=== PATIENT | male | born 1995 | race Caucasian/White ===

== ENCOUNTER 2017-05-18 12:08 | Inpatient (IN) | payer MEDICAID ==
[~2017-05-18] VITALS: Ht 162.6 cm; Wt 132.0 kg
[~2017-05-18 12:08] MED LIST: QUET200T PO
[2017-05-18 12:36] VITALS: BP 150/93
[2017-05-18] MEDS ORDERED: HALOPERIDOL 5 MG TABLET PO PRN (13:15)
[2017-05-18] MEDS ORDERED: ZOLPIDEM TARTRATE 10 MG TABLET PO PRN (13:15)
[2017-05-18] MEDS ORDERED: LORazepam 2 MG/ML VIAL ONE (13:41)
[2017-05-18] MEDS ORDERED: DiphenhydrAMINE HCL 50 MG/ML VIAL ONE (13:41)
[2017-05-18] MEDS ORDERED: HALOPERIDOL LACTATE 5 MG/ML VIAL ONE (13:41)
[2017-05-18] MEDS ORDERED: HALOPERIDOL LACTATE 5 MG/ML VIAL IM ONE (13:45)
[2017-05-18] MEDS ORDERED: LORazepam 2 MG/ML VIAL IM ONE (13:45)
[2017-05-18] MEDS ORDERED: DiphenhydrAMINE HCL 50 MG/ML VIAL IM ONE (13:45)
[2017-05-18 14:21] VITALS: BP 130/81
[2017-05-18] MEDS ORDERED: INFLUENZA VIRUS VACCINE QVS 2017-18 (3YR+)/PF 60 MCG/0.5 ML SYRINGE IM ONE (14:30)
[2017-05-18 16:09] VITALS: BP 126/73
[2017-05-18 16:10] VITALS: BP 126/73
[2017-05-18] MEDS: QUEtiapine FUMARATE 200 MG TABLET PO SCH (20:42)
[2017-05-19 00:05] VITALS: BP 112/60
[2017-05-19 08:11] LABS: BASOPHILS % (AUTO) 0.9 % (0.0-2.0); EOSINOPHILS % (AUTO) 1.9 % (1.0-6.0); HEMOGLOBIN 15.5 g/dL (13.5-17.5); LYMPHOCYTES % (AUTO) 31.4 % (22.0-44.0); MEAN CORPUSCULAR HGB CONC 34.5 G/dL (31.0-37.0); MEAN CORPUSCULAR VOLUME 90 fL (80-100); MONOCYTES # (AUTO) 0.5 K/uL (0.1-1.0); MONOCYTES % (AUTO) 8.3 % (2.0-9.0); NEUTROPHILS # (AUTO) 3.6 K/uL (1.8-7.7); NEUTROPHILS % (AUTO) 57.5 % (40.0-70.0); PLATELET COUNT (AUTO) 265 K/uL (150-450); RED BLOOD CELL COUNT(AUTO) 5.01 MIL/uL (4.50-5.90); RED CELL DISTRIBUTION WIDTH 14.4 % (11.5-14.5)
[2017-05-19 08:17] LABS: HEMOGLOBIN A1C 5.3 % (4.5-6.2)
[2017-05-19 08:31] LABS: ALANINE AMINOTRANSFERASE 36 U/L (12-78); ALBUMIN 4.2 g/dL (3.4-5.0); ALKALINE PHOSPHATASE 93 U/L (46-116); ANION GAP 9 mmol/L (8-16); ASPARTATE AMINOTRANSFERASE 22 U/L (15-37); BILIRUBIN,TOTAL 0.8 mg/dL (0.1-1.0); CALCIUM, TOTAL 9.4 mg/dL (8.8-10.5); CARBON DIOXIDE 30 mmol/L (22-29); CHLORIDE 102 mmol/L (98-107); CHOL/HDL RATIO 2.8 (4.2-7.3); CHOLESTEROL 165 mg/dL (131-200); CREATININE 0.82 mg/dL (0.60-1.30); GLOMERULAR FILTR. RATE CALC > 60 mL/min (>60); GLUCOSE,RANDOM 75 mg/dL (70-110); HDL CHOLESTEROL 60 mg/dL (40-60); LDL CHOL (CALC.) 90 mg/dL (0-130); POTASSIUM 3.8 mmol/L (3.5-5.1); SODIUM SERUM 141 mmol/L (136-145); THYROID STIMULATING HORMONE 0.43 uIU/mL (0.36-3.74); TOTAL PROTEIN, SERUM 8.2 g/dL (6.4-8.2); TRIGLYCERIDES 74 mg/dL (15-150); UREA NITROGEN, BLOOD 17 mg/dL (7-18)
[2017-05-19] MEDS ORDERED: IBUPROFEN 600 MG TABLET PO PRN (09:30)
[2017-05-19] MEDS ORDERED: BENZOCAINE/MENTHOL LOZENGE MM PRN (09:30)
[2017-05-19] MEDS ORDERED: ONDANSETRON HCL 4 MG TABLET PO PRN (09:30)
[2017-05-19] MEDS ORDERED: PETROLATUM,WHITE 71 GM JELLY TP PRN (09:30)
[2017-05-19] MEDS ORDERED: MAG HYDROX/AL HYDROX/SIMETH ES 30 ML SUSPENSION UDCUP PO PRN (09:30)
[2017-05-19] MEDS ORDERED: ALBUTEROL SULFATE HFA 90 MCG/PUFF 8 GM INHALER IH PRN (09:30)
[2017-05-19] MEDS ORDERED: CloNIDine HCL 0.1 MG TABLET PO PRN (09:30)
[2017-05-19] MEDS ORDERED: MAGNESIUM HYDROXIDE SUSPENSION 30 ML UDCUP PO PRN (09:30)
[2017-05-19] MEDS ORDERED: LOPERAMIDE HCL 2 MG CAPSULE PO PRN (09:30)
[2017-05-19] MEDS ORDERED: BACITRACIN 28.4 GM OINTMENT TP PRN (09:30)
[2017-05-19] MEDS ORDERED: ACETAMINOPHEN 325 MG TABLET PO PRN (09:30)
[2017-05-19 16:00] VITALS: BP 120/68
[2017-05-19] MEDS: QUEtiapine FUMARATE 200 MG TABLET PO SCH (20:20)
[2017-05-20 07:00] VITALS: BP 115/60
[2017-05-20 08:01] VITALS: BP 120/68
[2017-05-20] MEDS: LORazepam 2 MG TABLET PO PRN ×2 (12:40→16:48)
[2017-05-20 16:01] VITALS: BP 139/98
[2017-05-20 19:30] VITALS: BP 122/87
[2017-05-20] MEDS: QUEtiapine FUMARATE 200 MG TABLET PO SCH (20:35)
[2017-05-21 05:06] VITALS: BP 115/73
[2017-05-21 08:32] VITALS: BP 117/66
== END 2017-05-21 17:56 | disposition home or self-care (01) | DRG 750 ==
LOC: B2S 13:13
PROC: 3E0234Z Introduction of Serum, Toxoid and Vaccine into Muscle, Percutaneous Approach (ICD-10-PCS; principal; 2017-05-18)
DX: F25.1 Schizoaffective disorder, depressive type (principal); F23 Brief psychotic disorder; F15.10 Other stimulant abuse, uncomplicated; G47.00 Insomnia, unspecified; F12.90 Cannabis use, unspecified, uncomplicated; F10.10 Alcohol abuse, uncomplicated; Z79.899 Other long term (current) drug therapy; Z23 Encounter for immunization
CPT/HCPCS: 83036; 84439; 84443; 90471; J1200; J1630; J2060

== ENCOUNTER 2017-08-31 09:43 | Emergency (ER) | payer MEDICAID, OTHER ==
[~2017-08-31] VITALS: Ht 157.5 cm; Wt 75.0 kg
[2017-08-31] MEDS ORDERED: SODIUM CHLORIDE 0.9% 1,000 ML IV ONE (10:00)
[2017-08-31 10:06] LABS: BASOPHILS % (AUTO) 0.5 % (0.0-2.0); EOSINOPHILS % (AUTO) 0.4 % (1.0-6.0); HEMOGLOBIN 14.9 g/dL (13.5-17.5); LYMPHOCYTES # (AUTO) 1.2 K/uL (1.0-4.8); LYMPHOCYTES % (AUTO) 13.8 % (22.0-44.0); MEAN CORPUSCULAR HGB CONC 35.5 G/dL (31.0-37.0); MEAN CORPUSCULAR VOLUME 90 fL (80-100); MONOCYTES # (AUTO) 0.2 K/uL (0.1-1.0); MONOCYTES % (AUTO) 2.9 % (2.0-9.0); NEUTROPHILS # (AUTO) 6.9 K/uL (1.8-7.7); NEUTROPHILS % (AUTO) 82.4 % (40.0-70.0); PLATELET COUNT (AUTO) 260 K/uL (150-450); RED BLOOD CELL COUNT(AUTO) 4.67 MIL/uL (4.50-5.90); RED CELL DISTRIBUTION WIDTH 13.2 % (11.5-14.5)
[2017-08-31 10:12] LABS: ANION GAP 10 mmol/L (8-16); CALCIUM, TOTAL 8.2 mg/dL (8.8-10.5); CARBON DIOXIDE 30 mmol/L (22-29); CHLORIDE 103 mmol/L (98-107); CREATININE 0.95 mg/dL (0.60-1.30); GLOMERULAR FILTR. RATE CALC > 60 mL/min (>60); GLUCOSE,RANDOM 104 mg/dL (70-110); SODIUM SERUM 143 mmol/L (136-145); UREA NITROGEN, BLOOD 11 mg/dL (7-18)
[2017-08-31 10:15] LABS: PROTHROMBIN TIME 10.7 SEC (9.4-11.6)
[2017-08-31 10:17] LABS: ALANINE AMINOTRANSFERASE 78 U/L (12-78); ALKALINE PHOSPHATASE 92 U/L (46-116); ASPARTATE AMINOTRANSFERASE 49 U/L (15-37); BILIRUBIN,TOTAL 0.2 mg/dL (0.1-1.0); TOTAL PROTEIN, SERUM 7.9 g/dL (6.4-8.2)
[2017-08-31 10:23] LABS: GLUCOSE,POINT OF CARE 91 MG/DL (70-110)
[2017-08-31 10:38] LABS: AMPHET/METH SCREEN,URINE NEGATIVE (NEGATIVE); BARBITURATE SCREEN, URINE NEGATIVE (NEGATIVE); BENZODIAZEPINES SCREEN,URINE NEGATIVE (NEGATIVE); CANNABINOID SCREEN,URINE POSITIVE (NEGATIVE); COCAINE SCREEN,URINE NEGATIVE (NEGATIVE); METHADONE SCREEN, URINE NEGATIVE (NEGATIVE); OPIATE SCREEN,URINE NEGATIVE (NEGATIVE)
[2017-08-31 10:39] LABS: PHENCYCLIDINE SCREEN,URINE NEGATIVE (NEGATIVE)
[2017-08-31 11:21] LABS: APPEARANCE,URINE CLOUDY (CLEAR); BILIRUBIN,URINE NEGATIVE (NEGATIVE); GLUCOSE, URINE (UA) NEGATIVE (NEGATIVE); KETONES,URINE NEGATIVE (NEGATIVE); NITRATE,URINE NEGATIVE (NEGATIVE); OCCULT BLOOD,URINE NEGATIVE (NEGATIVE); PH,URINE 8.5 (5.0-8.0); PROTEIN,URINE NEGATIVE (NEGATIVE); UROBILINOGEN,URINE 0.2 mg/dL (<=1.0)
[2017-08-31 11:22] LABS: LEUKOCYTE ESTERASE ,URINE NEGATIVE (NEGATIVE)
[2017-08-31 11:26] VITALS: BP 127/52
== END 2017-08-31 12:06 | disposition home or self-care (01) ==
LOC: EMS 09:47
DX: S00.93XA Contusion of unspecified part of head, initial encounter (principal); F10.129 Alcohol abuse with intoxication, unspecified; F31.9 Bipolar disorder, unspecified; F20.9 Schizophrenia, unspecified; F15.90 Other stimulant use, unspecified, uncomplicated; Y90.6 Blood alcohol level of 120-199 mg/100 ml; Y09 Assault by unspecified means; Y93.89 Activity, other specified; Y92.89 Other specified places as the place of occurrence of the external cause; Y99.8 Other external cause status
CPT/HCPCS: 36415; 51702; 70450; 72125; 80053; 80307; 81003; 82948; 82962; 85025; 85610; 85730; 93005; 96360; 99285; G0480; J7030

== ENCOUNTER 2017-09-30 03:54 | Emergency (ER) | payer OTHER ==
[~2017-09-30 03:54] MED LIST changes: -QUEtiapine FUMARATE 100 MG TABLET PO ONE
== END 2017-09-30 04:30 | disposition left against medical advice (07) ==
LOC: EMS 03:57
DX: Z00.8 Encounter for other general examination (principal); Z53.21 Procedure and treatment not carried out due to patient leaving prior to being seen by health care provider

== ENCOUNTER → 2017-09-30 | Emergency (ER) | payer OTHER ==
[~2017-09-30] VITALS: Ht 160 cm; Wt 68.2 kg
[~2017-09-30] MED LIST changes: +QUEtiapine FUMARATE 100 MG TABLET PO ONE
[2017-09-30 19:11] VITALS: BP 117/68
[2017-09-30 20:22] LABS: BASOPHILS % (AUTO) 0.8 % (0.0-2.0); EOSINOPHILS % (AUTO) 1.8 % (1.0-6.0); HEMATOCRIT 40.6 % (41-53); HEMOGLOBIN 14.3 g/dL (13.5-17.5); LYMPHOCYTES # (AUTO) 2.2 K/uL (1.0-4.8); LYMPHOCYTES % (AUTO) 27.1 % (22.0-44.0); MEAN CORPUSCULAR HGB CONC 35.2 G/dL (31.0-37.0); MEAN CORPUSCULAR VOLUME 91 fL (80-100); MONOCYTES # (AUTO) 0.9 K/uL (0.1-1.0); MONOCYTES % (AUTO) 10.9 % (2.0-9.0); NEUTROPHILS # (AUTO) 4.7 K/uL (1.8-7.7); NEUTROPHILS % (AUTO) 59.4 % (40.0-70.0); PLATELET COUNT (AUTO) 241 K/uL (150-450); RED BLOOD CELL COUNT(AUTO) 4.47 MIL/uL (4.50-5.90); RED CELL DISTRIBUTION WIDTH 13.6 % (11.5-14.5)
[2017-09-30 20:45] LABS: ANION GAP 6 mmol/L (8-16); CALCIUM, TOTAL 8.6 mg/dL (8.8-10.5); CARBON DIOXIDE 31 mmol/L (22-29); CHLORIDE 103 mmol/L (98-107); CREATININE 1.02 mg/dL (0.60-1.30); GLOMERULAR FILTR. RATE CALC > 60 mL/min (>60); GLUCOSE,RANDOM 89 mg/dL (70-110); SODIUM SERUM 140 mmol/L (136-145); UREA NITROGEN, BLOOD 10 mg/dL (7-18)
[2017-09-30 20:50] LABS: ALANINE AMINOTRANSFERASE 31 U/L (12-78); ALBUMIN 4.1 g/dL (3.4-5.0); ALKALINE PHOSPHATASE 94 U/L (46-116); ASPARTATE AMINOTRANSFERASE 24 U/L (15-37); BILIRUBIN,TOTAL 0.6 mg/dL (0.1-1.0); TOTAL PROTEIN, SERUM 7.9 g/dL (6.4-8.2)
== END | disposition home or self-care (01) ==
LOC: EMS 18:59
DX: F25.9 Schizoaffective disorder, unspecified (principal); F31.9 Bipolar disorder, unspecified; F15.90 Other stimulant use, unspecified, uncomplicated
CPT/HCPCS: 80053; 85025; 99284; G0480

== ENCOUNTER 2019-12-12 19:37 | Emergency (ER) | payer MEDICAID, OTHER ==
[~2019-12-12] VITALS: Ht 160 cm; Wt 75.0 kg
[2019-12-12 20:13] VITALS: BP 140/75
== END 2019-12-12 21:48 | disposition left against medical advice (07) ==
LOC: EMS 19:38
DX: R44.0 Auditory hallucinations (principal); Z53.21 Procedure and treatment not carried out due to patient leaving prior to being seen by health care provider

== ENCOUNTER 2020-12-17 00:05 | Emergency (ER) | payer MEDICAID ==
[~2020-12-17] VITALS: Ht 160 cm; Wt 75.0 kg
[2020-12-17 00:54] LABS: BASOPHILS % (AUTO) 0.8 % (0.0-2.0); EOSINOPHILS % (AUTO) 0.6 % (1.0-6.0); HEMATOCRIT 39.1 % (41-53); HEMOGLOBIN 13.1 g/dL (13.5-17.5); LYMPHOCYTES # (AUTO) 2.1 K/uL (1.0-4.8); LYMPHOCYTES % (AUTO) 19.9 % (22.0-44.0); MEAN CORPUSCULAR HEMOGLOBIN 30.3 pg (26.0-34.0); MEAN CORPUSCULAR HGB CONC 33.6 G/dL (31.0-37.0); MEAN CORPUSCULAR VOLUME 90 fL (80-100); MONOCYTES # (AUTO) 0.5 K/uL (0.1-1.0); MONOCYTES % (AUTO) 4.5 % (2.0-9.0); NEUTROPHILS % (AUTO) 74.2 % (40.0-70.0); PLATELET COUNT (AUTO) 235 K/uL (150-450); RED BLOOD CELL COUNT(AUTO) 4.33 MIL/uL (4.50-5.90); RED CELL DISTRIBUTION WIDTH 13.9 % (11.5-14.5)
[2020-12-17] MEDS ORDERED: QUEtiapine FUMARATE 100 MG TABLET PO ONE (01:00)
[2020-12-17 01:04] LABS: ANION GAP 10 mmol/L (8-16); CALCIUM, TOTAL 8.3 mg/dL (8.8-10.5); CARBON DIOXIDE 27 mmol/L (22-29); CHLORIDE 107 mmol/L (98-107); CREATININE 0.93 mg/dL (0.60-1.30); GLOMERULAR FILTR. RATE CALC > 60 mL/min (>60); GLUCOSE,RANDOM 114 mg/dL (70-110); POTASSIUM 3.7 mmol/L (3.5-5.1); SODIUM SERUM 144 mmol/L (136-145); UREA NITROGEN, BLOOD 17 mg/dL (7-18)
[2020-12-17 01:10] LABS: ALANINE AMINOTRANSFERASE 58 U/L (12-78); ALBUMIN 3.8 g/dL (3.4-5.0); ALKALINE PHOSPHATASE 107 U/L (46-116); ASPARTATE AMINOTRANSFERASE 66 U/L (15-37); BILIRUBIN,TOTAL 0.2 mg/dL (0.1-1.0); TOTAL PROTEIN, SERUM 7.9 g/dL (6.4-8.2)
[2020-12-17] MEDS ORDERED: ACETAMINOPHEN 500 MG TABLET PO ONE (01:30)
[2020-12-17 06:17] VITALS: BP 134/83
== END 2020-12-17 06:17 | disposition home or self-care (01) ==
LOC: EDUNIT# 00:05 → EMS 00:06
DX: S02.2XXA Fracture of nasal bones, initial encounter for closed fracture (principal); R44.0 Auditory hallucinations; F31.9 Bipolar disorder, unspecified; F17.210 Nicotine dependence, cigarettes, uncomplicated; Z79.899 Other long term (current) drug therapy; W18.39XA Other fall on same level, initial encounter; Y93.89 Activity, other specified; Y92.89 Other specified places as the place of occurrence of the external cause; Y99.8 Other external cause status
CPT/HCPCS: 36415; 70450; 70486; 80053; 85025; 99285; G0480

== ENCOUNTER 2021-06-21 16:00 | Outpatient (CLI) | payer MEDICAID ==
[2021-06-21 18:07] VITALS: BP 133/97
[2021-06-21] MEDS ORDERED: OLANZapine 10 MG TABLET PO ONE (18:15)
[2021-06-21] MEDS ORDERED: OLANZapine 5 MG TABLET PO PRN (18:15)
[2021-06-21 18:56] VITALS: BP 133/97
[2021-06-21 18:56] LABS: GLUCOMETER DEV NAME(LOC) POC.BV
[2021-06-22 09:37] VITALS: BP 130/91
[2021-06-22 20:00] VITALS: BP 124/86
[2021-06-22] MEDS ORDERED: OLANZapine 5 MG TABLET PO SCH (21:00)
[2021-06-23 09:12] VITALS: BP 128/90
[2021-06-23] MEDS ORDERED: OLAN5TAB52 PO (11:57)
== END 2021-06-23 10:00 | disposition home or self-care (01) ==
LOC: CSU 16:00
PROVIDERS: ATTEND Psychiatry & Neurology Psychiatry
DX: F20.9 Schizophrenia, unspecified (principal)
CPT/HCPCS: 90792; Z7610

== ENCOUNTER 2021-06-26 16:40 | Inpatient (IN) | payer MEDICAID ==
[~2021-06-26] VITALS: Ht 160 cm; Wt 79.0 kg
[~2021-06-26 16:40] MED LIST changes: +OLAN5TAB52 PO; -QUET200T PO
[2021-06-26 17:06] LABS: BASOPHILS % (AUTO) 0.6 % (0.0-2.0); EOSINOPHILS % (AUTO) 0.6 % (1.0-6.0); HEMATOCRIT 43.8 % (41-53); HEMOGLOBIN 15.2 g/dL (13.5-17.5); LYMPHOCYTES # (AUTO) 1.4 K/uL (1.0-4.8); MEAN CORPUSCULAR HEMOGLOBIN 30.4 pg (26.0-34.0); MEAN CORPUSCULAR HGB CONC 34.7 G/dL (31.0-37.0); MEAN CORPUSCULAR VOLUME 88 fL (80-100); MONOCYTES # (AUTO) 0.6 K/uL (0.1-1.0); MONOCYTES % (AUTO) 6.5 % (2.0-9.0); NEUTROPHILS # (AUTO) 7.3 K/uL (1.8-7.7); NEUTROPHILS % (AUTO) 77.3 % (40.0-70.0); PLATELET COUNT (AUTO) 267 K/uL (150-450); RED BLOOD CELL COUNT(AUTO) 4.99 MIL/uL (4.50-5.90); RED CELL DISTRIBUTION WIDTH 13.4 % (11.5-14.5)
[2021-06-26 17:16] LABS: ANION GAP 10 mmol/L (8-16); CALCIUM, TOTAL 9.4 mg/dL (8.8-10.5); CARBON DIOXIDE 27 mmol/L (22-29); CHLORIDE 103 mmol/L (98-107); CREATININE 0.96 mg/dL (0.60-1.30); GLOMERULAR FILTR. RATE CALC > 60 mL/min (>60); GLUCOSE,RANDOM 124 mg/dL (70-110); POTASSIUM 3.6 mmol/L (3.5-5.1); SODIUM SERUM 140 mmol/L (136-145); UREA NITROGEN, BLOOD 9 mg/dL (7-18)
[2021-06-26 17:22] LABS: ALANINE AMINOTRANSFERASE 49 U/L (12-78); ALBUMIN 4.2 g/dL (3.4-5.0); ALKALINE PHOSPHATASE 103 U/L (46-116); ASPARTATE AMINOTRANSFERASE 29 U/L (15-37); BILIRUBIN,TOTAL 0.4 mg/dL (0.1-1.0); TOTAL PROTEIN, SERUM 8.1 g/dL (6.4-8.2)
[2021-06-26 17:44] LABS: COVID AG,FIA SOURCE NASOPHARYNGEAL
[2021-06-26 20:34] VITALS: BP 118/85
[2021-06-26] MEDS: ZOLPIDEM TARTRATE 10 MG TABLET PO PRN (20:52)
[2021-06-26] MEDS: OLANZapine 5 MG RAPDIS TABLET PO PRN (20:52)
[2021-06-26] MEDS: LORazepam 2 MG TABLET PO PRN (20:52)
[2021-06-27 04:47] VITALS: BP 110/74
[2021-06-27] MEDS ORDERED: INFLUENZA VIRUS VACCINE QVS 2021-22 (6MO+)/PF 60 MCG/0.5 ML SYRINGE IM. ONE (05:30)
[2021-06-27] MEDS: LORazepam 2 MG TABLET PO PRN ×2 (08:23→21:04)
[2021-06-27 08:44] VITALS: BP 129/94
[2021-06-27] MEDS: OLANZapine 5 MG TABLET PO SCH ×2 (11:39→20:17)
[2021-06-27 17:22] VITALS: BP 103/73
[2021-06-27] MEDS ORDERED: ACETAMINOPHEN 325 MG TABLET PO PRN (20:00)
[2021-06-27] MEDS ORDERED: GuaiFENesin/D-METHORPHAN [SUGAR-FREE] 200-20MG/10 ML SYRUP UDCUP PO PRN (20:00)
[2021-06-27] MEDS ORDERED: NICOTINE 14 MG/24 HOUR PATCH TD PRN (20:00)
[2021-06-27] MEDS ORDERED: LOPERAMIDE HCL 2 MG CAPSULE PO PRN (20:00)
[2021-06-27] MEDS ORDERED: ONDANSETRON HCL 4 MG TABLET PO PRN (20:00)
[2021-06-27] MEDS ORDERED: MAGNESIUM HYDROXIDE SUSPENSION 30 ML UDCUP PO PRN (20:00)
[2021-06-27] MEDS ORDERED: DOCUSATE SODIUM 100 MG CAPSULE PO PRN (20:00)
[2021-06-27] MEDS ORDERED: CloNIDine HCL 0.1 MG TABLET PO PRN (20:00)
[2021-06-27] MEDS ORDERED: MAG HYDROX/AL HYDROX/SIMETH ES 30 ML SUSPENSION UDCUP PO PRN (20:00)
[2021-06-27] MEDS ORDERED: IBUPROFEN 400 MG TABLET PO PRN (20:00)
[2021-06-27] MEDS ORDERED: PETROLATUM,WHITE 28 GM JELLY TP PRN (20:00)
[2021-06-27] MEDS ORDERED: ALBUTEROL SULFATE HFA 90 MCG/PUFF 8 GM INHALER IH PRN (20:00)
[2021-06-27] MEDS: ZOLPIDEM TARTRATE 10 MG TABLET PO PRN (20:17)
[2021-06-28 05:29] VITALS: BP 131/84
[2021-06-28] MEDS: OLANZapine 5 MG RAPDIS TABLET PO PRN (07:58)
[2021-06-28] MEDS: LORazepam 2 MG TABLET PO PRN ×2 (07:58→19:49)
[2021-06-28] MEDS: OLANZapine 5 MG TABLET PO SCH ×2 (08:03→20:03)
[2021-06-28 10:06] VITALS: BP 122/80
[2021-06-28 16:12] VITALS: BP 108/69
[2021-06-29 00:43] VITALS: BP 108/69
[2021-06-29 08:19] VITALS: BP 122/80
[2021-06-29] MEDS: OLANZapine 5 MG TABLET PO SCH ×2 (08:23→20:10)
[2021-06-29] MEDS: LORazepam 2 MG TABLET PO PRN ×2 (08:23→15:33)
[2021-06-29 16:20] VITALS: BP 116/78
[2021-06-29] MEDS: ZOLPIDEM TARTRATE 10 MG TABLET PO PRN (20:10)
[2021-06-30 00:33] VITALS: BP 118/72
[2021-06-30] MEDS: LORazepam 2 MG TABLET PO PRN ×2 (08:07→12:44)
[2021-06-30] MEDS: OLANZapine 5 MG TABLET PO SCH ×2 (08:07→20:47)
[2021-06-30 09:25] VITALS: BP 118/68
[2021-06-30] MEDS: OLANZapine 5 MG RAPDIS TABLET PO PRN (14:27)
[2021-06-30 16:18] VITALS: BP 128/65
[2021-07-01] MEDS: LORazepam 2 MG TABLET PO PRN ×3 (05:41→17:21)
[2021-07-01] MEDS: OLANZapine 5 MG RAPDIS TABLET PO PRN (05:43)
[2021-07-01 05:44] VITALS: BP 129/69
[2021-07-01 07:33] LABS: CHOL/HDL RATIO 3.4 (4.2-7.3)
[2021-07-01] MEDS: OLANZapine 5 MG TABLET PO SCH ×2 (08:35→20:52)
[2021-07-01 09:25] VITALS: BP 126/70
[2021-07-01 16:16] VITALS: BP_SYST 116
[2021-07-01] MEDS: ZOLPIDEM TARTRATE 10 MG TABLET PO PRN (20:52)
[2021-07-02 00:16] VITALS: BP 120/70
[2021-07-02] MEDS: OLANZapine 5 MG TABLET PO SCH (08:29)
[2021-07-02 08:43] VITALS: BP 124/76
[2021-07-02] MEDS: LORazepam 2 MG TABLET PO PRN ×2 (11:43→17:17)
[2021-07-02 16:00] VITALS: BP 121/79
[2021-07-02] MEDS: OLANZapine 10 MG TABLET PO SCH (20:13)
[2021-07-02] MEDS: ZOLPIDEM TARTRATE 10 MG TABLET PO PRN (20:13)
[2021-07-03 04:28] VITALS: BP 125/75
[2021-07-03 08:14] VITALS: BP 129/77
[2021-07-03] MEDS: OLANZapine 5 MG TABLET PO SCH (08:37)
[2021-07-03] MEDS: LORazepam 2 MG TABLET PO PRN ×2 (08:41→13:42)
[2021-07-03 16:14] VITALS: BP 131/81
[2021-07-03] MEDS: OLANZapine 10 MG TABLET PO SCH (21:09)
[2021-07-04 01:55] VITALS: BP 114/76
[2021-07-04] MEDS: OLANZapine 5 MG TABLET PO SCH (08:42)
[2021-07-04] MEDS ORDERED: OLAN10 PO (10:05)
[2021-07-04] MEDS ORDERED: OLAN5TAB52 PO (10:05)
== END 2021-07-04 11:45 | disposition home or self-care (01) | DRG 750 ==
LOC: EMS 16:48 → B3A 17:47
PROVIDERS: ADMIT Psychiatry & Neurology Psychiatry; ATTEND Psychiatry & Neurology Psychiatry
DX: F20.0 Paranoid schizophrenia (principal); Z59.00 Homelessness unspecified; E66.9 Obesity, unspecified; R73.9 Hyperglycemia, unspecified; Z20.822 Contact with and (suspected) exposure to COVID-19; F19.10 Other psychoactive substance abuse, uncomplicated; F10.10 Alcohol abuse, uncomplicated; F31.9 Bipolar disorder, unspecified; F17.210 Nicotine dependence, cigarettes, uncomplicated; Z65.3 Problems related to other legal circumstances; Z79.899 Other long term (current) drug therapy; Z71.51 Drug abuse counseling and surveillance of drug abuser; Z68.30 Body mass index [BMI] 30.0-30.9, adult
CPT/HCPCS: 80053; 80061; 84439; 84443; 85025; 90686; 99285; G0480

== ENCOUNTER 2021-07-05 03:30 | Emergency (ER) | payer MEDICAID ==
[~2021-07-05] VITALS: Ht 160 cm; Wt 77.3 kg
[~2021-07-05 03:30] MED LIST changes: +OLAN10 PO
[2021-07-05] MEDS ORDERED: LORazepam 1 MG TABLET PO ONE (04:15)
[2021-07-05] MEDS ORDERED: HALOPERIDOL 5 MG TABLET PO ONE (04:15)
[2021-07-05 07:10] VITALS: BP 128/86
== END 2021-07-05 07:21 | disposition home or self-care (01) ==
LOC: EMS 03:36
DX: F20.0 Paranoid schizophrenia (principal); F31.9 Bipolar disorder, unspecified; F17.210 Nicotine dependence, cigarettes, uncomplicated
CPT/HCPCS: 99283

== ENCOUNTER 2022-01-29 18:43 | Emergency (ER) | payer MEDICAID ==
[~2022-01-29] VITALS: Ht 165.1 cm; Wt 70.5 kg
[2022-01-29 18:47] VITALS: BP 146/86
[2022-01-29 20:42] LABS: BASOPHILS % (AUTO) 0.9 % (0.0-2.0); EOSINOPHILS % (AUTO) 1.2 % (1.0-6.0); HEMATOCRIT 44.5 % (41-53); HEMOGLOBIN 15.1 g/dL (13.5-17.5); LYMPHOCYTES % (AUTO) 27.7 % (22.0-44.0); MEAN CORPUSCULAR HEMOGLOBIN 30.4 pg (26.0-34.0); MEAN CORPUSCULAR HGB CONC 33.8 G/dL (31.0-37.0); MEAN CORPUSCULAR VOLUME 90 fL (80-100); MONOCYTES # (AUTO) 0.9 K/uL (0.1-1.0); MONOCYTES % (AUTO) 8.1 % (2.0-9.0); NEUTROPHILS # (AUTO) 6.7 K/uL (1.8-7.7); NEUTROPHILS % (AUTO) 62.1 % (40.0-70.0); PLATELET COUNT (AUTO) 301 K/uL (150-450); RED BLOOD CELL COUNT(AUTO) 4.96 MIL/uL (4.50-5.90); RED CELL DISTRIBUTION WIDTH 14.5 % (11.5-14.5)
[2022-01-29 20:56] LABS: ANION GAP 8 mmol/L (8-16); CALCIUM, TOTAL 9.5 mg/dL (8.8-10.5); CARBON DIOXIDE 28 mmol/L (22-29); CHLORIDE 101 mmol/L (98-107); CREATININE 1.09 mg/dL (0.60-1.30); GLOMERULAR FILTR. RATE CALC > 60 mL/min (>60); GLUCOSE,RANDOM 101 mg/dL (70-110); POTASSIUM 3.5 mmol/L (3.5-5.1); SODIUM SERUM 137 mmol/L (136-145); UREA NITROGEN, BLOOD 9 mg/dL (7-18)
[2022-01-29 21:00] LABS: ALANINE AMINOTRANSFERASE 84 U/L (12-78); ALBUMIN 4.3 g/dL (3.4-5.0); ALKALINE PHOSPHATASE 119 U/L (46-116); ASPARTATE AMINOTRANSFERASE 41 U/L (15-37); BILIRUBIN,TOTAL 0.7 mg/dL (0.1-1.0); TOTAL PROTEIN, SERUM 8.1 g/dL (6.4-8.2)
== END 2022-01-29 23:14 | disposition home or self-care (01) ==
LOC: EMS 19:11
DX: R44.0 Auditory hallucinations (principal); F31.9 Bipolar disorder, unspecified; F41.9 Anxiety disorder, unspecified; F17.210 Nicotine dependence, cigarettes, uncomplicated
CPT/HCPCS: 99283; 80053; 85025; 36415; G0480

== ENCOUNTER 2023-06-13 18:46 | Inpatient (IN) | payer MEDICAID ==
[~2023-06-13] VITALS: Ht 165.1 cm; Wt 84.0 kg
[~2023-06-13 18:46] MED LIST changes: -OLAN5TAB52 PO
[2023-06-13] MEDS ORDERED: LORazepam 2 MG/ML VIAL ONE (18:57)
[2023-06-13] MEDS ORDERED: HALOPERIDOL LACTATE 5 MG/ML VIAL ONE (18:57)
[2023-06-13] MEDS ORDERED: DiphenhydrAMINE HCL 50 MG/ML VIAL ONE (18:57)
[2023-06-13] MEDS: LORazepam 2 MG/ML VIAL IM ONE (19:05)
[2023-06-13] MEDS: HALOPERIDOL LACTATE 5 MG/ML VIAL IM ONE (19:05)
[2023-06-13] MEDS: DiphenhydrAMINE HCL 50 MG/ML VIAL IM ONE (19:05)
[2023-06-13 20:11] LABS: COVID AG,FIA SOURCE NASAL SWAB
[2023-06-13 20:47] LABS: SARS-COV2 (COVID) ANTIGEN,FIA Negative (Negative)
[2023-06-13 22:55] LABS: BASOPHILS % (AUTO) 0.8 % (0.0-2.0); EOSINOPHILS % (AUTO) 0.7 % (1.0-6.0); HEMATOCRIT 40.5 % (41-53); HEMOGLOBIN 13.6 g/dL (13.5-17.5); LYMPHOCYTES # (AUTO) 2.2 K/uL (1.0-4.8); LYMPHOCYTES % (AUTO) 18.8 % (22.0-44.0); MEAN CORPUSCULAR HEMOGLOBIN 30.8 pg (26.0-34.0); MEAN CORPUSCULAR HGB CONC 33.7 G/dL (31.0-37.0); MEAN CORPUSCULAR VOLUME 91 fL (80-100); MONOCYTES # (AUTO) 0.8 K/uL (0.1-1.0); MONOCYTES % (AUTO) 7.1 % (2.0-9.0); NEUTROPHILS # (AUTO) 8.6 K/uL (1.8-7.7); NEUTROPHILS % (AUTO) 72.6 % (40.0-70.0); PLATELET COUNT (AUTO) 245 K/uL (150-450); RED BLOOD CELL COUNT(AUTO) 4.44 MIL/uL (4.50-5.90); RED CELL DISTRIBUTION WIDTH 14.6 % (11.5-14.5); WHITE BLOOD COUNT (AUTO) 11.9 K/uL (4.5-11.0)
[2023-06-13 23:06] LABS: ANION GAP 11 mmol/L (8-16); CALCIUM, TOTAL 9.2 mg/dL (8.8-10.5); CARBON DIOXIDE 28 mmol/L (22-29); CHLORIDE 101 mmol/L (98-107); CREATININE 0.92 mg/dL (0.60-1.30); GLOMERULAR FILTR. RATE CALC > 60 mL/min (>60); GLUCOSE,RANDOM 97 mg/dL (70-110); POTASSIUM 3.6 mmol/L (3.5-5.1); SODIUM SERUM 140 mmol/L (136-145); UREA NITROGEN, BLOOD 16 mg/dL (7-18)
[2023-06-13 23:13] LABS: ALANINE AMINOTRANSFERASE 55 U/L (12-78); ALBUMIN 3.6 g/dL (3.4-5.0); ALKALINE PHOSPHATASE 120 U/L (46-116); ASPARTATE AMINOTRANSFERASE 43 U/L (15-37); BILIRUBIN,TOTAL 0.9 mg/dL (0.1-1.0); TOTAL PROTEIN, SERUM 7.3 g/dL (6.4-8.2)
[2023-06-13 23:15] LABS: ALCOHOL, BLOOD (SERUM) < 3 mg/dL (0-10)
[2023-06-14 10:03] LABS: APPEARANCE,URINE CLEAR (CLEAR); BILIRUBIN,URINE NEGATIVE (NEGATIVE); COLOR,URINE YELLOW (YELLOW); GLUCOSE, URINE (UA) NEGATIVE (NEGATIVE); LEUKOCYTE ESTERASE ,URINE NEGATIVE (NEGATIVE); NITRATE,URINE NEGATIVE (NEGATIVE); OCCULT BLOOD,URINE NEGATIVE (NEGATIVE); PROTEIN,URINE 30-70 mg/dL (NEGATIVE); SPECIFIC GRAVITIY, URINE 1.032 (1.003-1.030)
[2023-06-14 16:27] VITALS: BP 124/77; PULSE 90; RESP 18; TEMP 97.8; O2SAT 98
[2023-06-14 20:40] VITALS: BP 119/74; PULSE 98; RESP 18; TEMP 98; O2SAT 96
[2023-06-15 08:14] VITALS: BP 112/65; PULSE 86; RESP 17; TEMP 97.7; O2SAT 96
[2023-06-15] MEDS ORDERED: MAGNESIUM HYDROXIDE SUSPENSION 30 ML UDCUP PO PRN (18:15)
[2023-06-15] MEDS ORDERED: MAG HYDROX/ALUMINUM HYD/SIMETH ES 30 ML SUSPENSION UDCUP PO PRN (18:15)
[2023-06-15] MEDS ORDERED: GuaiFENesin/D-METHORPHAN [SUGAR-FREE] 200-20MG/10 ML SYRUP UDCUP PO PRN (18:15)
[2023-06-15] MEDS ORDERED: IBUPROFEN 400 MG TABLET PO PRN (18:15)
[2023-06-15] MEDS ORDERED: NICOTINE 14 MG/24 HOUR PATCH TD PRN (18:15)
[2023-06-15] MEDS ORDERED: ALBUTEROL SULFATE HFA 90 MCG/PUFF 8 GM INHALER IH PRN (18:15)
[2023-06-15] MEDS ORDERED: LOPERAMIDE HCL 2 MG CAPSULE PO PRN (18:15)
[2023-06-15] MEDS ORDERED: CloNIDine HCL 0.1 MG TABLET PO PRN (18:15)
[2023-06-15] MEDS ORDERED: ONDANSETRON HCL 4 MG TABLET PO PRN (18:15)
[2023-06-15] MEDS ORDERED: DOCUSATE SODIUM 100 MG CAPSULE PO PRN (18:15)
[2023-06-15] MEDS ORDERED: PETROLATUM,WHITE 28 GM JELLY TP PRN (18:15)
[2023-06-15] MEDS ORDERED: ACETAMINOPHEN 325 MG TABLET PO PRN (18:15)
[2023-06-15] MEDS: OLANZapine 10 MG TABLET PO SCH (20:53)
[2023-06-15 23:32] VITALS: BP 121/83; PULSE 81; RESP 17; TEMP 97.6; O2SAT 97
[2023-06-16 08:18] VITALS: BP 133/73; PULSE 65; RESP 18; TEMP 97.7; O2SAT 98
[2023-06-16] MEDS: HALOPERIDOL 5 MG TABLET PO PRN (08:50)
[2023-06-16] MEDS: LORazepam 2 MG TABLET PO PRN (08:50)
[2023-06-16 20:29] VITALS: BP 138/78; RESP 19
[2023-06-17 09:20] VITALS: BP 119/83; PULSE 58; RESP 17; TEMP 97.7; O2SAT 97
[2023-06-17] MEDS: ZOLPIDEM TARTRATE 10 MG TABLET PO PRN (20:32)
[2023-06-17 21:17] VITALS: BP 114/67; PULSE 93; RESP 18; O2SAT 93
[2023-06-18 08:37] LABS: HEMOGLOBIN A1C 5.4 % (3.8-5.6)
[2023-06-18 08:55] VITALS: BP 113/64; PULSE 98; RESP 17; TEMP 97.7; O2SAT 97
[2023-06-18 09:03] LABS: CHOL/HDL RATIO 3.7 (4.2-7.3); THYROID STIMULATING HORMONE 0.7 uIU/mL (0.36-3.74)
[2023-06-18] MEDS ORDERED: OLAN10TA3 PO (10:48)
== END 2023-06-18 11:55 | disposition left against medical advice (07) | DRG 750 ==
LOC: EMS 18:47 → B3A 06-14 13:46
PROVIDERS: ADMIT Psychiatry & Neurology Psychiatry; ATTEND Psychiatry & Neurology Psychiatry
PROC: GZHZZZZ Group Psychotherapy (ICD-10-PCS; principal; 2023-06-16)
DX: F25.1 Schizoaffective disorder, depressive type (principal); D72.829 Elevated white blood cell count, unspecified; G47.00 Insomnia, unspecified; E66.3 Overweight; F41.9 Anxiety disorder, unspecified; Z53.21 Procedure and treatment not carried out due to patient leaving prior to being seen by health care provider; Z20.822 Contact with and (suspected) exposure to COVID-19; F31.9 Bipolar disorder, unspecified; Z59.02 Unsheltered homelessness; Z87.891 Personal history of nicotine dependence; Z79.899 Other long term (current) drug therapy; Z68.38 Body mass index [BMI] 38.0-38.9, adult
CPT/HCPCS: 80053; 80061; 81003; 83036; 84443; 85025; 99291; G0480; J1200; J1630; J2060

== ENCOUNTER 2025-03-11 12:54 | Emergency (ER) | payer MEDICAID, OTHER ==
[~2025-03-11] VITALS: Ht 162.6 cm; Wt 77.3 kg
[~2025-03-11 12:54] MED LIST changes: -OLAN10 PO; +OLAN10TA3 PO
[2025-03-11 13:07] VITALS: BP 115/82; PULSE 92; RESP 16; TEMP 98.6; O2SAT 97
== END 2025-03-11 15:08 ==
LOC: EMS 12:54
DX: S00.83XA Contusion of other part of head, initial encounter (principal); F20.9 Schizophrenia, unspecified; F31.9 Bipolar disorder, unspecified; F41.9 Anxiety disorder, unspecified; F17.210 Nicotine dependence, cigarettes, uncomplicated; Y08.89XA Assault by other specified means, initial encounter; Y93.89 Activity, other specified; Y92.89 Other specified places as the place of occurrence of the external cause; Y99.8 Other external cause status
CPT/HCPCS: 70486; 99284; Z7502